=== PATIENT | male | born 2000 | race Caucasian/White ===

== ENCOUNTER → 2020-02-09 14:34 | Outpatient (BNVA) | payer SELFPAY | PROVIDERS: Family Provider Nurse Practitioner Family; PCP Nurse Practitioner Family; Visit Provider Registered Nurse | DX: G40.909 Epilepsy, unspecified, not intractable, without status epilepticus (principal) | CPT/HCPCS: 80307 ==

== ENCOUNTER → 2020-05-23 10:01 | Outpatient (BNVA) | payer OTHER, SELFPAY | PROVIDERS: Family Provider Nurse Practitioner Family; PCP Nurse Practitioner Family; Visit Provider Specialist | DX: G40.309 Generalized idiopathic epilepsy and epileptic syndromes, not intractable, without status epilepticus (principal) | CPT/HCPCS: 99205 ==

== ENCOUNTER 2020-05-31 08:26 | Outpatient (CLI) | payer OTHER, SELFPAY ==
--- NOTE | 2020-05-31 08:00 | MR_ITS ---
WS: [id number] MRI HEAD WITHOUT CONTRAST TECHNIQUE: Sagittal T1, T2 axial, T2 axial FLAIR, axial and coronal T1 images, axial susceptibility w eighted imaging, axial diffusion weighted images, and coronal T2 images were obtained. 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 COMPARISON: CT 018 FINDINGS: No evidence of restricted diffusion to suggest acute ischemia. Ventricular system and basal cisterns are patent. Normal posterior fossa. Normal vascular flow voids at the skull base. No extra-axial flui d collections. No evidence of mass or mass effect. Mild mucosal thickening in the ethmoid air cells. Mild mucosal thickening in the mastoid air cells. No hemosiderin on susceptibly weighted images. Normal optic chiasm and pituitary infundibulum. Normal cavernous sinuses. Temporal lobes and hippocam pal formations are normal in appearance. No evidence of signal abnormality in the mesial temporal lob es. No evidence of mesial temporal sclerosis. MR/MR head wo con* [id number] IMPRESSION: 1. No evidence of restricted diffusion to suggest acute ischemia. 2. No suspicious intracranial signal abnormalities. 3. No hemosiderin on susceptibly weighted images. 4. Normal optic chiasm and pituitary infundibulum. 5. Temporal lobes and hippocampal formations are normal in appearance. No evid ence of mesial temporal sclerosis.
== END 2020-05-31 08:27 | disposition home or self-care (01) ==
LOC: RADSHAW 08:27
PROVIDERS: PCP Registered Nurse; Visit Provider Specialist
DX: G40.309 Generalized idiopathic epilepsy and epileptic syndromes, not intractable, without status epilepticus (principal)
CPT/HCPCS: 70551

== ENCOUNTER → 2020-09-26 08:06 | Outpatient (BNVA) | payer OTHER, SELFPAY | PROVIDERS: PCP Registered Nurse; Visit Provider Specialist | DX: G40.209 Localization-related (focal) (partial) symptomatic epilepsy and epileptic syndromes with complex partial seizures, not intractable, without status epilepticus (principal); F17.210 Nicotine dependence, cigarettes, uncomplicated | CPT/HCPCS: 99214 ==

== ENCOUNTER → 2021-07-17 10:57 | Outpatient (BNVA) | payer OTHER, SELFPAY | PROVIDERS: PCP Registered Nurse; Visit Provider Specialist | DX: G40.209 Localization-related (focal) (partial) symptomatic epilepsy and epileptic syndromes with complex partial seizures, not intractable, without status epilepticus (principal); G40.309 Generalized idiopathic epilepsy and epileptic syndromes, not intractable, without status epilepticus; F17.200 Nicotine dependence, unspecified, uncomplicated | CPT/HCPCS: 99214 ==

== ENCOUNTER 2022-02-25 20:36 | Inpatient (IN) | payer SELFPAY ==
[2022-02-25 20:42] VITALS: BP 138/105; PULSE 132; RESP 18; TEMP 37.2; O2SAT 96; BMI 32.8
--- NOTE | 2022-02-25 20:48 | W.ED.GENADLT ---
HPI - General Adult General: Stated complaint: ETOH/MHE Time Seen by Provider: 02/25/22 20:38 History of Present Illness: HPI: [21]yo patient w/ hx of seizure BIBP for HI And SI. Patient verbalized threats to [place] police lieutenant and reported statements of I want to kill myself. debt recovery officer also reports the patient has been drinking. On arrival, the patient is AAOx3 and cooperative with my evaluation. No focal complaints of chest pain, shortness of breath, palpitations, N/V, focal GI/ complaints.No complaints of hallucinations. Onset: acute Duration: ongoing Location: home Severity: severe Associated symptoms: Deny chest pain, dyspnea, nausea, rash, palpitations or vomiting Review of Systems Const: Denies: fever(s) or chills Eyes: Denies: change in vision ENMT: Denies: mouth pain Card: Denies: chest pain or palpitations Resp: Denies: dyspnea or non-productive cough GI: Denies: abdominal pain, nausea, vomiting or diarrhea : Denies: dysuria Musc: Denies: extremity pain Skin/Breast: Denies: rash or new lesions Neuro: Denies: weakness in extremities Psych: Reports: suicidal ideation, homicidal ideation and other (Normal mood) Jas/Lymph: Denies: easy bruising PFSH ED PFSH: Social History Smoking and tobacco status: current every day smoker Second hand smoke exposure: Yes Alcohol intake: former Former alcohol use details: last drink was last Desire information about alcohol rehabilitation?: No Counseling given: Yes Desire information about substance/drug rehabilitation?: No Counseling given: No History of recent travel: No Current gender identity: Male Physical Exam Const: COMMON NORMALS: alert HENMT: COMMON NORMALS: atraumatic HEAD & SCALP: atraumatic MOUTH: moist mucous membranes not abnormal Eye: COMMON NORMALS: EOMs intact bilaterally and conjunctivae normal CONJUNCTIVA: Yes conjunctivae normal Neck/C-Spine: COMMON NORMALS: full ROM and supple Resp: COMMON NORMALS: normal respiratory effort and clear to auscultation bilaterally AUSCULTATION: clear to auscultation bilaterally Cardio: COMMON NORMALS: regular rate RATE: regular rate GI: COMMON NORMALS: Soft to palpation and non-tender PALPATION: Yes Soft to palpation Extremity: COMMON NORMALS: full ROM Neuro: SENSORIUM/ORIENTATION: Yes alert MOTOR EXAM: No Abnormal motor strength present and Other motor observations present (no focal motor deficits) Psych: COMMON NORMALS: speech normal SPEECH: Yes normal speech MOOD & AFFECT: Yes euthymic mood MDM - General Adult Medical Decision Making [21]yo patient w/ hx of epilepsy presenting for SI/HI and alcohol use. HDS, exam within normal limit Thoughts are linear and organized, and the patient has no AH/VH. Clinically the patient displays no overt toxidrome; they are well appearing, with low suspicion for toxic ingestion given history and exam. Symptoms unlikely 2/2 anemia, hypothyroidism, infection, or ICH. Workup: CBC, CMP, Lipase, salicylate/tylenol, alcohol level, UDS Lab findings: wnl [9:30pm] On reassessment, labs and workup wnl. Patient is hemodynamically stable with no acute medical complaints. Case discussed with psychiatric provider Dr. Purdy at [facility] psych inpatient with recommendation for admission Disposition: Psych Discharge Plan Discharge Patient Disposition: Admitted As Inpatient Clinical Impression: History of suicidal ideation, Homicidal ideation Condition: Stable Coding Level of Care Code ED Safety Attendant for Rk Dumont
[2022-02-25 21:15] LABS: Basophils # 0.2 10^3/uL (0.0-0.1); Eosinophils % 0.1 %; Hematocrit 45.4 % (42.0-52.0); Hemoglobin 15.5 g/dL (11.7-16.6); Lymphocytes # 5.2 10^3/uL (0.8-4.8); Lymphocytes % 33.6 %; Mean Corpuscular HGB Conc 34.1 g/dL (30.0-36.0); Mean Corpuscular Hemoglobin 31.1 pg (28.0-34.0); Mean Corpuscular Volume 91.2 fl (80-94); Mean Platelet Volume 10.6 fL (7.4-10.4); Monocytes # 0.9 10^3/uL (0.2-0.9); Monocytes % 5.7 %; Neutrophils # 8.99 10^3/uL (1.8-7.7); Neutrophils % 57.7 %; Nucleated Red Blood Cells % 0 %; Platelet Count 298 10^3/cmm (130-400); Red Blood Count 4.98 10^6/uL (4.1-5.3); Red Cell Distribution Width 11.9 % (12.1-15.1); White Blood Count 15.6 10^3/uL (4.0-10.0)
[2022-02-25 21:24] LABS: Amphetamines Screen Urine Negative (Negative); Barbiturates Screen Urine Negative (Negative); Benzodiazepines Screen Urine Negative (Negative); Cocaine Screen Urine Negative (Negative); Opiate Screen Urine Negative (Negative); PCP Screen Urine Negative (Negative); THC Screen Urine Negative (Negative)
[2022-02-25 21:39] LABS: Slide Review Slide Review Perform
[2022-02-25] MEDS: levETIRAcetam 500 mg Tablet 750 MG PO (21:46)
[2022-02-25 21:52] LABS: Alanine Aminotransferase 67 U/L (0-41); Albumin Level 4.7 g/dL (3.5-5.2); Alcohol Level 242 mg/dL (0-10); Alkaline Phosphatase 89 IU/L (40-130); Aspartate Amino Transferase 29 U/L (0-40); Blood Urea Nitrogen 9 mg/dL (6-20); Calcium 9.5 mg/dL (8.5-10.5); Carbon Dioxide 18 mmol/L (22-29); Globulin 3.6 g/dL (1.3-4.6); Glomerular Filtration Rate 168.5 mL/min (90-130); Glucose 121 mg/dL (65-115); Lipase 29 U/L (13-60); Thyroid Stimulating Hormone 3.25 uIU/mL (0.27-4.20); Total Bilirubin 0.2 mg/dL (0.15-1.2); Total Protein 8.3 g/dL (6.6-8.7)
[2022-02-25 21:53] LABS: Acetaminophen < 5.0 ug/mL (10-30); Salicylate < 0.3 mg/dL (3-10)
[2022-02-25 21:54] LABS: Potassium 4.2 mmol/L (3.5-5.1)
--- NOTE | 2022-02-25 23:25 | PC.NURSE ---
2130 pt highly aggitated paranoid with rambling fleeting thought process and refusing VS taken.
[2022-02-25 23:35] LABS: Anion Gap 20.2 (5-19); Chloride 108 mmol/L (98-107); Osmolality Calculated 294 mOsm/kg (285-295); Sodium 142 mmol/L (136-145)
[2022-02-25 23:37] VITALS: BP 137/85; PULSE 102; RESP 20; O2SAT 95
--- NOTE | 2022-02-25 23:46 | PC.NURSE ---
Report called to unit Taiwo asked for 20-30 min before bringing pt to unit. Pt updated
[2022-02-26 00:50] VITALS: BP 114/76; PULSE 102; RESP 18; TEMP 36.7; O2SAT 96
[2022-02-26 06:00] VITALS: BP 111/76; PULSE 98; RESP 18; TEMP 36.8; O2SAT 98
--- NOTE | 2022-02-26 08:44 | W.PM.NPUH&PS ---
Providers/Chief Complaint Admitting Physician: Anton Purdy MD Primary Care Provider: OKSANA Haro Chief Complaint: ETOH/MHE HPI NPU History of Present Illness Clint Grant is a 21 year old male admitted to our emergency department with the following report: HPI: [21]yo patient w/ hx of seizure BIBP for HI And SI.? Patient verbalized threats to police district switchboard operator and reported statements of I want to kill myself. ? loan servicing officer also reports the patient has been drinking. On arrival, the patient is AAOx3 and cooperative with my evaluation. No focal complaints of chest pain, shortness of breath, palpitations, N/V, focal GI/ complaints.No complaints of hallucinations. Onset: acute Affidavit from the police states patient threatening police officers with threats of harm, also verbalized statements of hurting himself . He was admitted to the neuropsychiatry unit for definitive treatment of these issues. He says that he was just drunk and stressed out. He denies any thoughts of wanting to hurt other people or not be alive recently otherwise. He says that he is stressed out because he is home all day taking care of his [id number] daughter. His girlfriend works on the weekends as a AGRICULTURE TEACHER. 3 days/week, she is in rehab at [facility] for alcohol abuse. She is hoping to graduate very soon from that program. Then he will be able to get a job. He wants to be a cook. He has been cooking at the [employer] periodically. He enjoys cooking. With her working 2 days a week they have enough money to get by more would be significantly better. He denies anxiety symptoms in general. He has not self-conscious in public. He does not worry too much about things in general. He sleeps well. He likes ashtrays and dishes to be clean but does not feel that he is obsessive-compulsive otherwise. He denies depression. He took generic Prozac several years ago. He thinks it was 10 or 20 mg. He stopped taking it because it did not do anything for him. He denies trauma in his childhood or past. He denies a family history of depression or anxiety. He says the last time that he became intoxicated was about 1 month ago. Meds NPU Home Medications Medication Instructions Recorded Confirmed Last Taken Type levetiracetam 500 mg 500 mg PO BID 02/26/22 02/26/22 02/25/22 21:00 History tablet,extended release 24 hr (Keppra XR) midazolam 5 mg/spray (0.1 mL) 1 spray INTRANASAL ONCE 02/26/22 02/26/22 Unknown History nasal spray (Nayzilam) Allergies Allergy/AdvReac Type Severity Reaction Status Date / Time No Known Allergies Allergy Verified 01/14/22 14:45 PFSH NPU PFSH: Social History Smoking and tobacco status: current every day smoker Second hand smoke exposure: Yes Alcohol intake: former Former alcohol use details: last drink was last Desire information about alcohol rehabilitation?: No Counseling given: Yes Desire information about substance/drug rehabilitation?: No Counseling given: No History of recent travel: No Current gender identity: Male Mental Status Exam MSE Comments: This is a 21-year-old overweight male who appears approximately his stated age and is in no acute distress. He is pleasant and cooperative with the evaluation. He is grooming is fairly good. He has a full carvalho. He is dressed in hospital scrubs. psychomotor activity is normal. Speech is at a regular rate and rhythm, normal volume, good articulation, not pressured. Alert, oriented X3 Attention and concentration appears to be normal. Memory is intact Mood is good. Affect is euthymic. Thought process is logical and goal-directed. Thought content: Denies auditory and visual hallucinations. No delusions or paranoia are noted. No current suicidal ideation, and no homicidal ideation. Fund of knowledge is appears to be average. Insight and judgment appear to be fair. Impulse control is poor especially when intoxicated. Vitals/I&O/Wt Last Vital Signs Temp 98.3 F 02/26/22 06:00 Pulse 98 02/26/22 06:00 Resp 18 02/26/22 06:00 BP 111/76 02/26/22 06:00 Pulse Ox 98 02/26/22 06:00 Weight last 48 hrs Weight 95.254 kg Data NPU : 02/25/22 20:47 02/25/22 20:47 A&P Assessment and plan (1) Generalized epilepsy: Status: Acute (2) Homicidal ideation: Status: Acute (3) Alcohol intoxication: Status: Acute (4) Alcohol abuse: Status: Acute (5) Suicidal ideation: Status: Acute Plan This is a 21-year-old male who admits to being stressed out and gets drunk periodically. He was intoxicated and told police yesterday that he was going to hurt them and kill himself. Plan: 1. Continue current medication. 2. Continue every 15 minute checks for safety. 3. Encourage individual, group and milieu therapies. 4. Encourage sober living treatment after discharge at the highest level of care to which he is willing to commit. 5. We will monitor for safety for himself in the community prior to discharge. Involuntary Hold Information 96 Hour Hold: 96 Hour Involuntary Admission: Yes 96 Hour Hold Ending Date: 03/03/22 96 Hour Hold Ending Time: 20:36 Attestations NPU Medical Necessity Statement*: Inpatient hospitalization is medically necessary and the clinically appropriate intervention at this time. We will initiate medications and make changes as indicated. He will be in the hospital for over 2 midnights. Likely length of stay 4-6 days Coding Level of Care Code Acute Remnant Sorter for g Fwd Diagnoses Generalized epilepsy G40.309 Homicidal ideation R45.850 Alcohol intoxication F10.929 Alcohol abuse F10.10 Suicidal ideation R45.851
[2022-02-26] MEDS: levETIRAcetam 500 mg Tablet 750 MG PO ×3 (08:46→21:10)
[2022-02-26] MEDS: folic acid 1 mg Tablet PO (08:46)
[2022-02-26] MEDS: thiamine 100 mg Tablet PO (08:46)
[2022-02-26] MEDS: multivitamin therapeutic Tablet 1 TAB PO (08:46)
[2022-02-26] MEDS: nicotine 2 mg Gum BUCCAL ×4 (10:14→19:37)
[2022-02-26 14:00] VITALS: BP 126/86; PULSE 93; RESP 18; TEMP 36.6; O2SAT 97
[2022-02-26 21:07] VITALS: BP 127/79; PULSE 100; RESP 18; TEMP 36.6; O2SAT 98
[2022-02-27 06:00] VITALS: BP 122/82; PULSE 62; RESP 17; TEMP 36.7; O2SAT 100
[2022-02-27] MEDS: acetaminophen 325 mg Tablet 650 MG PO (06:42)
[2022-02-27] MEDS: folic acid 1 mg Tablet PO (08:21)
[2022-02-27] MEDS: nicotine 2 mg Gum BUCCAL (08:21)
[2022-02-27] MEDS: levETIRAcetam 500 mg Tablet 750 MG PO (08:21)
[2022-02-27] MEDS: multivitamin therapeutic Tablet 1 TAB PO (08:21)
[2022-02-27] MEDS: thiamine 100 mg Tablet PO (08:21)
--- NOTE | 2022-02-27 08:23 | P.NPUDS_ITS ---
Diagnoses at Discharge Discharge Diagnosis (1) Generalized epilepsy: Status: Acute (2) Homicidal ideation: Status: Acute (3) Alcohol intoxication: Status: Acute (4) Alcohol abuse: Status: Acute (5) Suicidal ideation: Status: Acute Reason for Visit Reason for Visit: ETOH/MHE Brief History: History of Present Illness Clint Grant is a 21 year old male admitted to our emergency department with the following report: HPI: [21]yo patient w/ hx of seizure BIBP for HI And SI.? Patient verbalized threats to chief program officer and reported statements of I want to kill myself. ? protective services officer also reports the patient has been drinking. On arrival, the patient is AAOx3 and cooperative with my evaluation. No focal complaints of chest pain, shortness of breath, palpitations, N/V, focal GI/ complaints.No complaints of hallucinations. Onset: acute Affidavit from the police states patient threatening police officers with threats of harm, also verbalized statements of hurting himself . He was admitted to the neuropsychiatry unit for definitive treatment of these issues.? He says that he was just drunk and stressed out.? He denies any thoughts of wanting to hurt other people or not be alive recently otherwise.? He says that he is stressed out because he is home all day taking care of his [id number] daughter.? His girlfriend works on the weekends as a DRILLING SUPERVISOR.? 3 days/week, she is in rehab at [facility] for alcohol abuse.? She is hoping to graduate very soon from that program.? Then he will be able to get a job.? 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 He enjoys cooking.? With her working 2 days a week they have enough money to get by more would be significantly better.? He denies anxiety symptoms in general.? He has not self-conscious in public.? He does not worry too much about things in general.? He sleeps well.? He likes ashtrays and dishes to be clean but does not feel that he is obsessive-compulsive otherwise.? He denies depression.? He took generic Prozac several years ago.? He thinks it was 10 or 20 mg.? He stopped taking it because it did not do anything for him.? He denies trauma in his childhood or past.? He denies a family history of depression or anxiety.? He says the last time that he became intoxicated was about 1 month ago. Hospital Course Hospital Course He slowly acclimated to the individual, group and milieu therapies provided. He was continued on his outpatient Keppra medication. He did not require any as needed medications. He tolerated these doses and showed steady improvement during his stay. He was able to contract for safety outside hospital prior to discharge. During the hospitalization, patient had routine laboratory studies which were within normal limits except for few outliers. Additionally there was a general medical evaluation which was also within normal limits and revealed no new acute processes. Discharge Summary: At the time of discharge, lethality was denied and psychosis was resolving. Mood and anxiety were well managed. Patient endorsed a plan to follow-up with the aftercare recommendations of the treatment team. Patient was evaluated and deemed to be absent credible lethality, and had achieved the maximum benefit from an inpatient hospitalization, so was discharged. Involuntary Hold Information 96 Hour Hold: 96 Hour Involuntary Admission: Yes 96 Hour Hold Ending Date: 03/03/22 96 Hour Hold Ending Time: 20:36 Mental Status Exam MSE Comments: This is a 21-year-old overweight male who appears approximately his stated age and is in no acute distress. He is pleasant and cooperative with the evaluation. He is grooming is fairly good. He has a full carvalho. He is dressed in hospital scrubs. psychomotor activity is normal. Speech is at a regular rate and rhythm, normal volume, good articulation, not pressured. Alert, oriented X3 Attention and concentration appears to be normal. Memory is intact Mood is good. Affect is euthymic. Thought process is logical and goal-directed. Thought content: Denies auditory and visual hallucinations. No delusions or paranoia are noted. No current suicidal ideation, and no homicidal ideation. Fund of knowledge is appears to be average. Insight and judgment appear to be fair. Impulse control is poor especially when intoxicated. Cognition: Patient Appearance: Appropriate Level of Consciousness: Awake and Alert Patient Cognition Impaired: No Ability to Follow Directions: Good Patient Orientation (long list): Person, Place, Name, Age, Birthday and Year Comprehension Ability: No Impairment Hallucination Type: None Delusion Description: Paranoid Ideation Thought Process: Appropriate Affect: Affect Description: Appropriate Depressive Symptoms: Increased Anxiety Behavior: Patient Behavior: Appropriate Speech Pattern: Appropriate Discharge Data Studies Completed and Pending: Laboratory Results WBC 15.6 10^3/uL (4.0 -10.0) H 02/25/22 20:47 RBC 4.98 10^6/uL (4.1 -5.3) 02/25/22 20:47 Hgb 15.5 g/dL (11.7-1 6.6) 02/25/22 20:47 Hct 45.4 % (42.0-52.0 ) 02/25/22 20: MCV 91.2 fl (80-94) 02/25/22 20:47 MCH 31.1 pg (28.0-34. 0) 02/25/22 20: MCHC 34.1 g/dL (30.0-3 6.0) 02/25/22 20: RDW 11.9 % (12.1-15.1 ) L 02/25/22 20:47 Plt Count 298 10^3/cmm (130 -400) 02/25/22 20:47 MPV 10.6 fL (7.4-10.4 ) H 02/25/22 20:47 Neut % (Auto) 57.7 % 02/25/22 20:47 Lymph % (Auto) 33.6 % 02/25/22 20:47 Rutherford % (Auto) 5.7 % 02/25/22 20:47 Eos % (Auto) 0.1 % 02/25/22: Baso % (Auto) 1.0 % 02/25/22: Neut # (Auto) 8.99 10^3/uL (1.8 -7.7) H 02/25/22 20:47 Lymph # (Auto) 5.2 10^3/uL (0.8- 4.8) H 02/25/22 20:47 Rutherford # (Auto) 0.9 10^3/uL (0.2- 0.9) 02/25/22 20: Eos # (Auto) 0.0 10^3/uL (0.0- 0.8) 02/25/22 20:47 Baso # (Auto) 0.2 10^3/uL (0.0- 0.1) H 02/25/22 20:47 Nucleated RBC % (a uto) 0 % 02/25/22 20:47 Nucleated RBCs # 0.0 /100WBC 02/25/22 20:47 Sodium 142 mmol/L (136-1 45) 02/25/22 20:47 Potassium 4.2 mmol/L (3.5-5 .1) 02/25/22 20:47 Chloride 108 mmol/L (98-10 7) H 02/25/22 20:47 Carbon Dioxide 18 mmol/L (22-29) L 02/25/22 20:47 Anion Gap 20.2 (5-19) H 02/25/22 20:47 BUN 9 mg/dL (6-20) 02/25/22 20:47 Creatinine 0.6 mg/dL (0.7-1. 2) L 02/25/22 20:47 GFR Calculation 168.5 mL/min (90- 130) H 02/25/22 20:47 Glucose 121 mg/dL (65-115 ) H 02/25/22 20:47 Calculated Osmolal ity 294 mOsm/kg (285- 295) 02/25/22 20:47 Calcium 9.5 mg/dL (8.5-10 .5) 02/25/22 20:47 Total Bilirubin 0.2 mg/dL (0.15-1 .2) 02/25/22 20:47 AST 29 U/L (0-40) 02/25/22 20:47 ALT 67 U/L (0-41) H 02/25/22 20:47 Alkaline Phosphata se 89 IU/L (40-130) 02/25/22 20:47 Total Protein 8.3 g/dL (6.6-8.7 ) 02/25/22 20:47 Albumin 4.7 g/dL (3.5-5.2 ) 02/25/22 20:47 Globulin 3.6 g/dL (1.3-4.6 ) 02/25/22 20:47 Lipase 29 U/L (13-60) 02/25/22 20:47 TSH 3.25 uIU/mL (0.27 -4.20) 02/25/22 20:47 Free T4 1.20 ng/dL (0.82- 1.77) 02/25/22 20:47 Salicylates < 0.3 mg/dL (3-10 ) L 04/12/22 20:47 Urine Opiates Scre en Negative ng/mL (N egative) 02/25/22 20:49 Acetaminophen < 5.0 ug/mL (10-3 0) L 02/25/22 20:47 Ur Barbiturates Sc reen Negative ng/mL (N egative) 02/25/22 20:49 Ur Phencyclidine S crn Negative ng/mL (N egative) 02/25/22 20:49 Ur Amphetamines Sc reen Negative ng/mL (N egative) 02/25/22 20:49 U Benzodiazepines Scrn Negative ng/mL (N egative) 02/25/22 20:49 Urine Cocaine Scre en Negative ng/mL (N egative) 02/25/22 20:49 U Marijuana (THC) Screen Negative ng/mL (N egative) 02/25/22 20:49 Ethyl Alcohol 242 mg/dL (0-10) H 02/25/22 20:47 Vitals: Last Vital Signs Temp 98.1 F 02/27/22 06:00 Pulse 62 02/27/22 06:00 Resp 17 02/27/22 06:00 BP 122/82 02/27/22 06:00 Pulse Ox 100 02/27/22 06:00 Discharge Plan Discharge Patient Disposition: Home Condition: Stable Prescriptions: Continued Nayzilam 5 mg/spray (0.1 mL) spray,non-aerosol 1 spray intranasal ONCE 0RF Rx Instructions: 1 spray intranasal on onset of seizure Changed Keppra XR 500 mg tablet extended release 24 hr 2,250 mg PO DAILY Qty: 0 0RF Discharge Orders: Discharge Order (Routine); Ordered 02/27/22 Ordered By: Anton Purdy Referrals: Beth Skelton FNP [Primary Care Provider] - Discharge Diet: Regular Discharge Activity: Resume usual activity Patient Instructions: Opioid Safety Discharge Attestations NPU Time Spent in Discharge Care*: less than 30 min Specific Discharge Activities: Specific discharge activities: educating patient, discussing with case management manager/social workers/dc planners, documenting/other paperwork and evaluating patient/reviewing data Coding Level of Care Code Acute Chg FW DC note Diagnoses Generalized epilepsy G40.309 Homicidal ideation R45.850 Alcohol intoxication F10.929 Alcohol abuse F10.10 Suicidal ideation R45.851
[2022-02-27 08:33] VITALS: BP 122/82; PULSE 62; RESP 17; TEMP 36.7; O2SAT 100
== END 2022-02-27 11:29 | disposition home or self-care (01) | DRG 897 ==
LOC: ER 23:34 → NP 23:38
PROVIDERS: Admitting Provider Psychiatry & Neurology Psychiatry; Emergency Provider Emergency Medicine; PCP Registered Nurse; Visit Provider Psychiatry & Neurology Psychiatry
DX: F10.929 Alcohol use, unspecified with intoxication, unspecified (principal); R45.851 Suicidal ideations; G40.309 Generalized idiopathic epilepsy and epileptic syndromes, not intractable, without status epilepticus; R45.850 Homicidal ideations; Y90.8 Blood alcohol level of 240 mg/100 ml or more; F17.200 Nicotine dependence, unspecified, uncomplicated
CPT/HCPCS: 80053; 80306; 80307; 83690; 84439; 84443; 85025; 97150; 97165; 99285